=== PATIENT | female | born 1990 | race African-American/Black ===

== ENCOUNTER 2018-08-28 10:45 | Emergency (ER) | payer OTHER | END 2018-08-28 11:33 | disposition home or self-care (01) | LOC: SCSER 10:45 | DX: S40.862A Insect bite (nonvenomous) of left upper arm, initial encounter (principal); L08.9 Local infection of the skin and subcutaneous tissue, unspecified; E11.9 Type 2 diabetes mellitus without complications; E78.5 Hyperlipidemia, unspecified; Z79.84 Long term (current) use of oral hypoglycemic drugs; Z79.899 Other long term (current) drug therapy; W57.XXXA Bitten or stung by nonvenomous insect and other nonvenomous arthropods, initial encounter | CPT/HCPCS: 99281 ==

== ENCOUNTER 2018-10-31 13:34 | Outpatient (CLI) | payer OTHER ==
--- NOTE | 2018-10-31 15:29 | ULT ---
TRANSABDOMINAL AND TRANSVAGINAL PELVIC SONOGRAM WITH DUPLEX EVALUATION: HISTORY: Dysmenorrhea. FINDINGS: The urinary bladder is incompletely distended. The uterus has a heterogeneous echotexture and is 6.7 cm. The endometrium is 0.5 cm. There is a physiologic amount of fluid within the cul-de-sac. The right ovary is 1.9 cm and the left is 2.1 cm. Each contains small follicles and demonstrates good co jacqueline and spectral Doppler flow. IMPRESSION: Normal pelvic sonogram. POS: SID
== END 2018-10-31 13:35 | disposition home or self-care (01) ==
LOC: SCSULT 13:34
PROVIDERS: ATTEND Family Medicine
DX: N94.6 Dysmenorrhea, unspecified (principal)
CPT/HCPCS: 76856

== ENCOUNTER 2020-04-07 07:36 | Outpatient (CLI) | payer MEDICAID ==
--- NOTE | 2020-04-07 08:34 | ULT ---
ULTRASOUND OBSTETRICAL COMPLETE: DATE: 04/07/2020 HISTORY: 29-year-old female suspected 20 . Confirmation of twin requested. FINDINGS: number: Twin Diamniotic, dichorionic. Maternal cervix: 4 cm. Closed. Fetus A: lie: Cephalic Placenta: Posterior. No placenta previa. Amniotic fluid volume: Subjectively normal. heart rate: 174 bpm It is too early to evaluate anatomy in detail. biometry: Biparietal diameter (BPD): 2.6 cm 14 w 4 d Head circumference (HC): 9.7 cm 14 w 4 d Abdominal circumference (AC): 8.4 cm 14 w 5 d Femur length (FL): 1.4 cm 14 w 1 d Average ultrasound age (AUA): 14 w 4 d Estimated date of delivery (FOUZIA): 10/02/2020 Estimated weight (EFW): 97 g +/- 14 g Fetus B: lie: Transverse Placenta: Anterior fundal Amniotic fluid volume: Subjectively normal. heart rate: 165 bpm biometry: Biparietal diameter (BPD): 2.6 cm 14 w 4 d Head circumference (HC): 9.5 cm 14 w 3 d Abdominal circumference (AC): 8.1 cm 14 w 4 d Femur length (FL): 1.6 cm 14 w 6 d Average ultrasound age (AUA): 14 w 5 d Estimated date of delivery (FOUZIA): 10/01/2020 Estimated weight (EFW): 102 g +/- 15 g IMPRESSION: 1) Live 2nd trimester, dichorionic, diamniotic twin intrauterine gestation. 2) Estimated gestational age of 14 weeks, 4 or 5 days
== END 2020-04-07 07:37 | disposition home or self-care (01) ==
LOC: BICULT 07:36
PROVIDERS: ATTEND Nurse Practitioner
DX: O09.92 Supervision of high risk pregnancy, unspecified, second trimester (principal); O30.042 Twin pregnancy, dichorionic/diamniotic, second trimester; Z3A.14 14 weeks gestation of pregnancy
CPT/HCPCS: 76810

== ENCOUNTER 2020-08-01 12:28 | Inpatient (IN) | payer OTHER ==
[2020-08-01 14:46] LABS: #Eosinphils 0.1 thou/uL (0.0-0.7); #Lymphocytes 1.8 thou/uL (1.20-3.40); #Monocytes 0.5 thou/uL (0.11-0.59); #Neutrophils 3.4 thou/uL (1.40-6.50); %Basophils 0.3 % (0.0-1.0); %Eosinophils 1.9 % (0.0-10.0); %Lymphocytes 30.8 % (21.0-51.0); %Monocytes 8.6 % (0.0-10.0); %Neutrophils 58.5 % (42.0-75.0); Mean Corpuscular Hemoglobin 30.1 pg (27.0-31.0); Mean Corpuscular Volume 91.2 fL (78.0-98.0); Mean Platelet Volume 8.4 fL (7.4-10.4); Platelet Count 283 thou/uL (130-400); Red Blood Cell (RBC) Count 3.98 mill/uL (4.20-5.40); White Blood Cell (WBC) Count 5.8 thou/uL (4.8-10.8)
[2020-08-01 15:01] VITALS: BMI 48.9
[2020-08-01 15:26] LABS: ALT (SGPT) 15 U/L (8-55); AST (SGOT) 14 U/L (5-34); Albumin 2.9 g/dL (3.5-5.0); Alkaline Phosphatase 147 U/L (40-110); Anion Gap 12 mmol/L (10-20); BUN (Urea Nitrogen) 6 mg/dL (7.0-18.7); Bilirubin, Total 0.4 mg/dL (0.2-1.2); Calc. Creatinine Clearance 204 mL/min (70-130); Calcium 9.3 mg/dL (7.8-10.44); Carbon Dioxide 20 mmol/L (22-29); Chloride 107 mmol/L (98-107); Estimated GFR-MDRD Greater than 90; Globulin 3.3 g/dL (2.4-3.5); Glucose 148 mg/dL (70-105); Potassium 3.7 mmol/L (3.5-5.1); Protein, Total 6.2 g/dL (6.0-8.3); Sodium 135 mmol/L (136-145)
[2020-08-01] MEDS ORDERED: hydrALAZINE 20 MG/ML VIAL SLOW IVP PRN ×2 (16:10→18:30)
--- NOTE | 2020-08-01 17:24 | ULT ---
LIMITED OBSTETRICAL ULTRASOUND FOR BIOPHYSICAL PROFILE INDICATION: Known known single twin intrauterine demise with estimated weight and position of t he living twin . TECHNIQUE: Grayscale, M-mode Doppler, color Doppler and spectral Doppler images were obtained. Biophy sical profile was submitted by the dealer support technician. Imaging is focused on the clinical indication. COMPARISON: Obstetrical ultrasound dated 04/07/2020 GESTATION: Number of gestations: Twin. Presentation: Twin A is in breech presentation; twin B is in breech presentation. heart rate: 160 bpm for twin A; no heart tones for twin B . Placental location: Twin A placenta is posterior in location. Twin B placenta is anterior in location . Previa: No evidence for previa. Cervical length: Not well seen ENZO: Not recorded.. Biophysical profile: tone: 2 out of 2. breathin out of 2 movements: 2 out of 2 Amniotic fluid level: 2 out of 2 Twin A gestational age measurements: Biparietal diameter measures 7.59 cm giving an estimated gestational age of 30 weeks and 3 days (17th percentile). The head circumference measures 28.14 cm with a gestational age of 30 weeks and 6 days (8th percentil e). The abdominal circumference was 25.78 cm giving an estimated gestational age of 30 weeks and 0 days ( 13th percentile). The femoral length was 5.60 cm giving estimated gestational age of 29 weeks and 3 days (4th percentil e). The estimated weight is 1477 g +/- 2 119 g (3 lbs. 4 oz. +/- 8 ounces) (8th percentile). The estimated gestational age by ultrasound is 30 weeks and 3 days with estimated due date September 142019. Estimated clinical age is 31 weeks and 2 days with estimated due date of the 2019. IMPRESSION: 1. Single live twin . Known demise of twin B. 2. Twin A size and dates as above. 3. Biophysical profile of Twin A of 8 out of 8.
[2020-08-01] MEDS ORDERED: Ondansetron PF 4 MG/2 ML Vial IVP PRN (18:30)
[2020-08-01] MEDS ORDERED: Lactated Ringer's 1,000 ML IV SCH (18:30)
[2020-08-01] MEDS ORDERED: Butorphanol Tartrate 1 MG/ML VIAL SLOW IVP PRN (18:30)
[2020-08-01 18:56] LABS: Creatinine, Urine 212.09 mg/dL (47-110)
[2020-08-01] MEDS: metFORMIN 500 MG TAB PO SCH (20:39)
--- NOTE | 2020-08-02 00:01 | HP ---
PRIMARY OB: Lee Cadet MD CHIEF COMPLAINT: Elevated blood pressure. HISTORY OF PRESENT ILLNESS: The patient is a 29-year-old G1, P0, with an intrauterine at 31 weeks and 2 days with a di-di gestation and recent demise of one of the babies. The patient presents today to Labor and Delivery with reports of elevated blood pressures at home up into the 160s. She denies personal knowledge of chronic hypertension, though in reviewing the case, the primary physician, Dr. Cadet, reports that she is diagnosed with chronic hypertension. The patient also reports a history of diabetes, on metformin and glimepiride, and in reviewing her case, she does report she had a 24-hour urine collection few weeks ago showing per the doctor's report an elevated baseline proteinuria in the 400s. She reports that she had a headache that resolved with 500 mg of Tylenol. She otherwise denies vision changes, chest pain, shortness of breath, nausea, vomiting, diarrhea, constipation, hip problems, knee problems, and muscle weakness. She denies vaginal bleeding, leakage of fluid, urinary urgency or frequency. PAST MEDICAL HISTORY: Diabetes, high blood pressure, heart burn, and eczema. PAST SURGICAL HISTORY: She has had her tonsils removed and surgery in her wisdom teeth. ALLERGIES: NO KNOWN DRUG ALLERGIES. MEDICATIONS: 1. Glimepiride 2 mg daily. 2. Metformin 1000 mg twice a day. 3. vitamins. 4. I believe, aspirin. SOCIAL HISTORY: Denies drug, alcohol, or tobacco use. OB LABS: Blood type is O positive. Antibody screen is negative. RPR is negative in the first and third trimester. HIV is negative in the first and third trimester. Hepatitis B surface antigen is negative. GC and chlamydia negative. Sickle cell is negative. REVIEW OF SYSTEMS: Per HPI. PHYSICAL EXAMINATION: VITAL SIGNS: Initial blood pressure was 139/85, heart rate of 105, respiratory rate of 20, saturating 99% on room air, temperature 98.7. Over the subsequent hours, blood pressures have remained in the 130s to 140s with a couple of elevations, 158/94, 184/96, and 149/85. The patient has had primarily normal to mild range pressures. It was believed that the 185 was not accurate due to position of the patient and timing from coming to the bathroom. Over the subsequent several hours, the patient's blood pressures have persistently remained in the normal range. GENERAL: The patient appears to be in no acute distress. She is alert and oriented, cooperative, and pleasant to interact with. HEENT: Head is normocephalic and atraumatic. LUNGS: Clear to auscultation bilaterally. HEART: Has a regular rate and rhythm. ABDOMEN: Gravid, soft, and nontender. EXTREMITIES: Nontender, nonedematous. heart tracing of the living fetus shows the baseline in the 150s with moderate long-term variability, positive 15 x 15 accelerations and no contractions visible on the monitor. Bedside ultrasound confirms the demise of one of the babies. BPP of 8/8 of the living baby with an estimated weight of 1477 g or 3 pounds and 4 ounces with the presenting baby in breech presentation and living. LABORATORY DATA: Demonstrate a white count of 5.8, hemoglobin of 12.0, hematocrit 36.3, and platelets of 283,000. Sodium of 135, potassium of 3.7, bicarb of 20, BUN of 6, creatinine of 0.74, glucose of 148, calcium of 9.3, AST of 14, and ALT of 15. Urine showing a creatinine ratio of 0.23. ASSESSMENT AND PLAN: The patient is a 29-year-old female with an intrauterine at 31 weeks and 2 days of a di-di twins gestation and demise of fetus B, here for elevated blood pressures. The patient does have a history of chronic hypertension. Blood pressures have been primarily normal to mild range with couple of isolated severe pressures at the beginning part of her stay. The plan at this time is continued observation of her blood pressures over the next 24 hours with a 24-urine collection for protein to compare to previous and anticipate discharge tomorrow, should her blood pressures remain in the mild range or normal and not require treatment. Fetus has a reassuring BPP of 8/8 and appropriate heart tracing of category one. Job ID: [id number]
[2020-08-02] MEDS ORDERED: FLU VACC QS2020-21(6MOS UP)/PF 60 MCG/0.5 ML SYRINGE IM ONE (09:00)
[2020-08-02] MEDS: metFORMIN 500 MG TAB PO SCH ×2 (09:56→18:58)
[2020-08-02] MEDS: Glimepiride 2 MG TAB PO SCH (09:56)
[2020-08-02] MEDS: Aspirin 81 mg Enteric Coated Tablet PO SCH (09:57)
[2020-08-02] MEDS: Prenatal Vitamin 1 TAB PO SCH (09:57)
[2020-08-02 11:42] LABS: SARS-CoV-2 MS2 Positive; SARS-CoV-2 N Gene Negative; SARS-CoV-2 S Gene Negative; SARS-CoV-2 by NAA Not Detected (NotDetected); SARS-CoV-2 orf1ab Negative
[2020-08-02] MEDS: Betamet Acet/Betamet Na Ph 30 MG/5 ML VIAL IM SCH (13:04)
[2020-08-02] MEDS: Acetaminophen 500 MG TAB PO PRN (14:31)
--- NOTE | 2020-08-02 15:45 | ULT ---
LIMITED OBSTETRICAL ULTRASOUND FOR BIOPHYSICAL PROFILE INDICATION: Known single twin intrauterine demise with estimated weight and position of the rolly ing twin . TECHNIQUE: Grayscale, M-mode Doppler, color Doppler and spectral Doppler images were obtained. Biophy sical profile was submitted by the cooling tower technician. Imaging is focused on the clinical indication. COMPARISON: Obstetrical ultrasound dated 04/07/2020 GESTATION: Number of gestations: Twin. Presentation: Twin A is in breech presentation; twin B is in breech presentation. heart rate: 160 bpm for twin A; no heart tones for twin B . Placental location: Twin A placenta is posterior in location. Twin B placenta is anterior in location . Previa: No evidence for previa. Cervical length: Not well seen ENZO: Not recorded.. Biophysical profile: tone: 2 out of 2. breathin out of 2 movements: 2 out of 2 Amniotic fluid level: 2 out of 2 Twin A gestational age measurements: Biparietal diameter measures 7.59 cm giving an estimated gestational age of 30 weeks and 3 days (17th percentile). The head circumference measures 28.14 cm with a gestational age of 30 weeks and 6 days (8th percentil e). The abdominal circumference was 25.78 cm giving an estimated gestational age of 30 weeks and 0 days ( 13th percentile). The femoral length was 5.60 cm giving estimated gestational age of 29 weeks and 3 days (4th percentil e). The estimated weight is 1477 g +/- 2 119 g (3 lbs. 4 oz. +/- 8 ounces) (8th percentile). The estimated gestational age by ultrasound is 30 weeks and 3 days with estimated due date September 142019. Estimated clinical age is 31 weeks and 2 days with estimated due date of the 2019. IMPRESSION: 1. Single live twin . Known demise of twin B. 2. Twin A size and dates as above. 3. Biophysical profile of Twin A of 8 out of 8. Transcribed Date/Time: 08/02/2020 3:45 PM
[2020-08-02 22:49] LABS: Urine Total Volume 1980 mL (600-1600)
[2020-08-02 23:04] LABS: Protein - 24 Hr 317 mg/24 hr (Less than 300); Protein, Urine 16 mg/dL (1-14)
[2020-08-03] MEDS: Acetaminophen 500 MG TAB PO PRN (00:34)
[2020-08-03] MEDS: Lactated Ringer's 1,000 ML IV SCH ×4 (01:34→14:26)
[2020-08-03] MEDS ORDERED: Magnesium Sulfate 20 gm/500 ml 20 GM/500 ML BAG ONE (06:17)
[2020-08-03] MEDS: Betamet Acet/Betamet Na Ph 30 MG/5 ML VIAL IM SCH (06:27)
[2020-08-03 06:32] LABS: Hemoglobin 12.4 g/dL (12.0-16.0); Mean Corpuscular HGB CONC 31.9 g/dL (32.0-36.0); Mean Corpuscular Hemoglobin 29.8 pg (27.0-31.0); Mean Corpuscular Volume 93.4 fL (78.0-98.0); Platelet Count 299 thou/uL (130-400); RBC Distribution Width 14.1 % (11.5-14.5); Red Blood Cell (RBC) Count 4.16 mill/uL (4.20-5.40); White Blood Cell (WBC) Count 11.1 thou/uL (4.8-10.8)
[2020-08-03] MEDS ORDERED: CEFAZOLIN 3 GM in Sodium Chloride 0.9% 100 ML IVPB SCH (06:45)
[2020-08-03] MEDS ORDERED: Oxytocin 10 UNITS/ML VIAL ONE (06:48)
[2020-08-03] MEDS ORDERED: Ketorolac Tromethamine 30 MG/ML VIAL ONE (06:48)
[2020-08-03] MEDS ORDERED: Dexamethasone 4 mg/ml Vial ONE (06:48)
[2020-08-03] MEDS ORDERED: Ondansetron PF 4 MG/2 ML Vial ONE (06:48)
[2020-08-03] MEDS ORDERED: PHENYLEPHRINE-NS 100 MCG/ML 10 ML SYRINGE ONE (06:48)
[2020-08-03] MEDS ORDERED: Metoclopramide HCl 10 MG/2 ML VIAL ONE (07:05)
[2020-08-03 07:11] LABS: HBSAg Index 0.17 S/CO (0-0.99); Hep B Surf Ag Non-Reactive S/CO (NonReactive); Syphilis Antibody Nonreactive (Nonreactive); Syphilis Antibody Index 0.05 S/CO (<1.00 Non-Reactive)
[2020-08-03] MEDS ORDERED: Midazolam HCl 2 mg/2 ml Vial ONE (07:28)
[2020-08-03] MEDS ORDERED: L&D-Morphine 4 MG/ML VIAL SLOW IVP PRN (08:06)
[2020-08-03] MEDS ORDERED: Naloxone HCl 0.4 mg/ml Vial IV PRN (08:06)
[2020-08-03] MEDS ORDERED: Promethazine HCl 25 MG/ML VIAL IM PRN ×2 (08:06→12:06)
[2020-08-03] MEDS ORDERED: Meperidine HCl/PF 25 MG/ML VIAL SLOW IVP PRN (08:06)
[2020-08-03] MEDS ORDERED: diphenhydrAMINE 50 MG/ML VIAL IVP PRN (08:06)
[2020-08-03] MEDS ORDERED: Ondansetron PF 4 MG/2 ML Vial IVP PRN ×2 (08:06→12:06)
[2020-08-03] MEDS ORDERED: HYDROmorphone 2 MG/ML VIAL SLOW IVP PRN (08:06)
[2020-08-03] MEDS ORDERED: Promethazine HCl 25 MG SUPP PR PRN (08:06)
[2020-08-03] MEDS ORDERED: Naloxone HCl 0.4 mg/ml Vial IVP PRN ×2 (08:06)
[2020-08-03] MEDS ORDERED: Ondansetron HCl/PF 4 MG/2 ML Vial IVP PRN (08:06)
[2020-08-03] MEDS ORDERED: Communication Order-Pharmacy FS SCH (08:15)
[2020-08-03 08:44] LABS: Actual Bicarbonate (HCO3a) 22.7 mEq/L (22-28); Actual Bicarbonate (HCO3v) 23 mEq/L (22-28); Analyzer IN Cardio OR; Base Excess (BEa) -9.3 mEq/L (-2.0 to +3.0)
[2020-08-03 08:45] LABS: pH (Cord, venous) 7.09 (7.32-7.43)
[2020-08-03] MEDS ORDERED: Simethicone Chewable 80 MG TAB PO PRN (12:06)
[2020-08-03] MEDS ORDERED: Adacel (T-DAP) 0.5 ML SYRINGE IM ONE (12:06)
[2020-08-03] MEDS ORDERED: hydrALAZINE 20 MG/ML VIAL SLOW IVP PRN (12:06)
[2020-08-03] MEDS ORDERED: NS / Oxytocin 40 units/1000ml 1,000 ML IV SCH (12:06)
[2020-08-03] MEDS ORDERED: Bisacodyl 10 MG SUPP PR PRN (12:06)
[2020-08-03] MEDS ORDERED: diphenhydrAMINE 25 MG CAP PO PRN (12:06)
[2020-08-03] MEDS ORDERED: Sodium Chloride 0.9% 10 ML ONE (13:12)
[2020-08-03] MEDS: Ketorolac Tromethamine 30 MG/ML VIAL IVP SCH ×2 (13:23→20:08)
[2020-08-03] MEDS: Glimepiride 2 MG TAB PO SCH (14:24)
[2020-08-03] MEDS: metFORMIN 500 MG TAB PO SCH ×2 (14:24→17:44)
[2020-08-03] MEDS: Prenatal Vitamin 1 TAB PO SCH (14:25)
[2020-08-03] MEDS: Aspirin 81 mg Enteric Coated Tablet PO SCH (14:25)
[2020-08-03] MEDS ORDERED: Meperidine HCl/PF 25 MG/ML VIAL IM PRN (20:15)
[2020-08-03] MEDS ORDERED: Butorphanol Tartrate 1 MG/ML VIAL SLOW IVP PRN (20:15)
[2020-08-03] MEDS ORDERED: cloNIDine 0.1 MG TAB PO PRN (22:14)
[2020-08-03] MEDS: Sodium Chloride 0.9% 10 ML ONE (22:30)
[2020-08-03] MEDS: Docusate Calcium (SURFAK) 240 MG CAP PO SCH (22:41)
[2020-08-03] MEDS: Ferrous Sulfate 325 MG TAB PO SCH (22:41)
[2020-08-03] MEDS ORDERED: Labetalol HCl 100 MG/20 ML VIAL SLOW IVP PRN (23:00)
[2020-08-04] MEDS: Ketorolac Tromethamine 30 MG/ML VIAL IVP SCH ×2 (02:02→12:49)
[2020-08-04 06:22] LABS: Hemoglobin 9.8 g/dL (12.0-16.0); Mean Corpuscular HGB CONC 31.7 g/dL (32.0-36.0); Mean Corpuscular Hemoglobin 29.6 pg (27.0-31.0); Mean Corpuscular Volume 93.6 fL (78.0-98.0); Mean Platelet Volume 8.3 fL (7.4-10.4); Platelet Count 263 thou/uL (130-400); Red Blood Cell (RBC) Count 3.31 mill/uL (4.20-5.40); White Blood Cell (WBC) Count 12.3 thou/uL (4.8-10.8)
[2020-08-04] MEDS ORDERED: Sodium Chloride 0.9% 10 ML ONE (08:18)
[2020-08-04] MEDS: Sodium Chloride 0.9% 10 ML ONE (08:26)
[2020-08-04] MEDS: HYDROcodone/Acetaminophen 5/325 mg Tablet PO PRN ×2 (10:49→17:40)
[2020-08-04] MEDS: Prenatal Vitamin 1 TAB PO SCH (11:58)
[2020-08-04] MEDS: Docusate Calcium (SURFAK) 240 MG CAP PO SCH ×2 (11:58→21:54)
[2020-08-04] MEDS: Glimepiride 2 MG TAB PO SCH (11:58)
[2020-08-04] MEDS: Ferrous Sulfate 325 MG TAB PO SCH ×2 (11:58→21:54)
[2020-08-04] MEDS: metFORMIN 500 MG TAB PO SCH ×2 (11:58→17:39)
[2020-08-04] MEDS: Ibuprofen 800 MG TAB PO SCH ×2 (14:48→21:54)
[2020-08-05] MEDS: Ibuprofen 800 MG TAB PO SCH ×3 (05:42→21:47)
[2020-08-05] MEDS: HYDROcodone/Acetaminophen 5/325 mg Tablet PO PRN ×4 (05:44→21:47)
[2020-08-05] MEDS: metFORMIN 500 MG TAB PO SCH ×2 (09:54→17:35)
[2020-08-05] MEDS: Glimepiride 2 MG TAB PO SCH (09:54)
[2020-08-05] MEDS: Prenatal Vitamin 1 TAB PO SCH (09:55)
[2020-08-05] MEDS: Ferrous Sulfate 325 MG TAB PO SCH (09:55)
[2020-08-05] MEDS: Docusate Calcium (SURFAK) 240 MG CAP PO SCH ×2 (09:55→21:47)
--- NOTE | 2020-08-06 01:40 | OP ---
DATE OF PROCEDURE: 08/03/2020 PREOPERATIVE DIAGNOSES: 1. 31-week 5-day . 2. Continuing after the in utero of twin B the week prior to admission. 3. Non-reassuring heart tones. 4. Pregestational White class B diabetes. 5. Chronic hypertension. 6. Morbid obesity. 7. Advanced maternal age. POSTOPERATIVE DIAGNOSES: 1. 31-week 5-day . 2. Continuing after the in utero of twin B. 3. Non-reassuring heart tones. 4. Pregestational White class B diabetes. 5. Chronic hypertension. 6. Morbid obesity. 7. Advanced maternal age. PROCEDURE PERFORMED: Primary low cervical transverse . SURGEON: Helio CO-SURGEON: Dr. Thakur. ANESTHESIA: Spinal. DESCRIPTION OF EVENTS: After informed consent was obtained from the patient, she was taken to the operating room, where spinal anesthesia was administered. She was prepped and draped in the usual sterile fashion. Her pannus was taped up prior to prep and drape. A Pfannenstiel incision was created with a #10 scalpel blade and carried down to the fascia. The fascial incision was extended transversely with Woodruff scissors. The superior fascial segment grasped with Yane's and elevated, and the underlying rectus muscles were dissected free first bluntly and then sharply. This was repeated with the inferior fascial segment. The rectus muscles were divided in the midline with blunt dissection. Peritoneum was entered bluntly. The bladder blade was inserted. The uterus was entered in a low-transverse fashion with a clean #10 scalpel blade. Light meconium-stained amniotic fluid was encountered upon rupture of membranes. Twin A was found to be in footling breech presentation and was delivered atraumatically. The cord was clamped x2 and cut, and the infant was handed to the staff in attendance. A segment of the cord was removed for cord ABGs and cord blood was obtained. Membranes were ruptured for twin B and delivered uneventfully. The umbilical cord was edematous and deep maroon in color at approximately 2[address] distal to the placenta region to twin B. The placentas were manually extracted and sent to Pathology for review after cord blood was obtained. The uterus was exteriorized and freed of clots and debris with a dry lap. The uterus was repaired with a running locking suture of 1 Monocryl in a single full-thickness layer, followed by a series of interrupted [id number] sutures also of 1 Monocryl for hemostasis, which was achieved. The abdomen was copiously irrigated with saline. Seprafilm was applied to the repaired uterine incision and the anterior uterine fundus. The uterus was then returned to the abdomen. Peritoneum was repaired with a running suture of 3-0 Vicryl. The fascia was repaired with a running suture of 0 PDS, and 3 interrupted sutures of 3-0 Vicryl were placed in the subdermal layer to reapproximate the skin. The skin was closed with skin [place]. A wound VAC was placed. She tolerated the procedure well and suffered no acute complications. She was taken to Recovery in stable condition, the infant to the NICU also in stable condition. Job ID: [id number] MTDD
[2020-08-06] MEDS: HYDROcodone/Acetaminophen 5/325 mg Tablet PO PRN ×5 (02:09→18:29)
[2020-08-06] MEDS: Ferrous Sulfate 325 MG TAB PO SCH ×2 (05:40→08:18)
[2020-08-06] MEDS: Ibuprofen 800 MG TAB PO SCH ×2 (06:13→14:53)
[2020-08-06] MEDS: Prenatal Vitamin 1 TAB PO SCH (08:18)
[2020-08-06] MEDS: metFORMIN 500 MG TAB PO SCH ×2 (08:18→17:03)
[2020-08-06] MEDS: Docusate Calcium (SURFAK) 240 MG CAP PO SCH (08:18)
[2020-08-06] MEDS: Glimepiride 2 MG TAB PO SCH (08:19)
[2020-08-06 08:29] VITALS: BP 136/75; TEMP 98.4
== END 2020-08-06 18:38 | disposition home or self-care (01) | DRG 786 ==
LOC: ERS 12:28 → L&D/OP 12:28 → EDSTATUS 14:07 → L&D 18:30 → 3SE 08-03 04:13 → L&D 08-03 04:30 → 3SW 08-03 12:31 → OBSVTOIN 08-03 14:11
PROVIDERS: ADMIT Family Medicine; ATTEND Obstetrics & Gynecology
PROC: 10D00Z1 Extraction of Products of Conception, Low, Open Approach (ICD-10-PCS; principal; 2020-08-03)
DX: O30.043 Twin pregnancy, dichorionic/diamniotic, third trimester (principal); O24.12 Pre-existing type 2 diabetes mellitus, in childbirth; O10.02 Pre-existing essential hypertension complicating childbirth; O76 Abnormality in fetal heart rate and rhythm complicating labor and delivery; O99.214 Obesity complicating childbirth; E66.01 Morbid (severe) obesity due to excess calories; O32.8XX0 Maternal care for other malpresentation of fetus, not applicable or unspecified; Z3A.31 31 weeks gestation of pregnancy; Z37.3 Twins, one liveborn and one stillborn; Z79.84 Long term (current) use of oral hypoglycemic drugs; Z20.828 Contact with and (suspected) exposure to other viral communicable diseases; E11.9 Type 2 diabetes mellitus without complications
CPT/HCPCS: 36415; 36416; 51702; 76815; 76819; 80053; 82570; 82805; 84156; 85025; 85027; 86780; 86850; 86900; 86901; 87340; 87635; 88307; 96372; 96374; 99285; G0378; J0702; J1100; J1200; J1885; J2250; J2270; J2310; J2405; J2765; J3475; Q0163; U0003

== ENCOUNTER 2023-11-08 15:29 | Outpatient (CLI) | payer OTHER | END 2023-11-08 15:30 | disposition home or self-care (01) | LOC: BICULT 15:29 | PROVIDERS: ATTEND Family Medicine | DX: E04.1 Nontoxic single thyroid nodule (principal) | CPT/HCPCS: 76536 ==